=== PATIENT | male | born 1960 | race Caucasian/White ===

== ENCOUNTER 2024-02-17 19:58 | Inpatient (IN) | payer MEDICARE ==
[~2024-02-17] VITALS: Ht 188 cm; Wt 90.7 kg
[2024-02-17 20:27] LABS: BASOPHILS % (AUTO) 0.5 % (0.0-2.0); EOSINOPHILS # (AUTO) 0.1 K/uL (0.0-0.7); EOSINOPHILS % (AUTO) 2.2 % (0.0-6.0); HEMATOCRIT 35 % (39-51); HEMOGLOBIN 11.9 g/dL (13.5-17.5); LYMPHOCYTES # (AUTO) 1.6 K/uL (0.8-4.8); LYMPHOCYTES % (AUTO) 30.5 % (20.0-44.0); MEAN CORPUSCULAR HEMOGLOBIN 30 PG (26.0-33.0); MEAN CORPUSCULAR HGB CONC 34 g/dl (31.0-36.0); MEAN CORPUSCULAR VOLUME 88 fL (80-96); MONOCYTES # (AUTO) 0.7 K/uL (0.1-1.30); MONOCYTES % (AUTO) 14.1 % (2.0-12.0); NEUTROPHILS # (AUTO) 2.7 K/uL (1.8-8.9); NEUTROPHILS % (AUTO) 52.7 % (43.0-81.0); PLATELET COUNT (AUTO) 213 K/uL (150-450); RED BLOOD CELL COUNT(AUTO) 4.04 MIL/uL (4.5-6.0); RED CELL DISTRIBUTION WIDTH 15.7 % (11.5-15.0); WHITE BLOOD COUNT (AUTO) 5.2 K/uL (4.3-11.0)
[2024-02-17 20:45] LABS: CALCIUM, SERUM 9.2 mg/dL (8.5-10.1); CARBON DIOXIDE 30 mmol/L (21-32); CHLORIDE 102 mmol/L (98-107); CREATININE 0.8 mg/dL (0.6-1.3); GLUCOSE 85 mg/dL (74-106); POTASSIUM 3.8 mmol/L (3.5-5.1); SODIUM SERUM 137 mmol/L (136-145); UREA NITROGEN, BLOOD 11 mg/dL (7-18)
[2024-02-17 20:47] LABS: ALANINE AMINOTRANSFERASE 9 U/L (12-78); ALBUMIN 3.3 g/dL (3.4-5.0); ALCOHOL, BLOOD < 3 mg/dL (0-10); ALKALINE PHOSPHATASE 78 U/L (46-116); ASPARTATE AMINOTRANSFERASE 9 U/L (15-37); BILIRUBIN,DIRECT 0.1 mg/dL (0.0-0.2); BILIRUBIN,TOTAL 0.5 mg/dL (0.2-1.0); TOTAL PROTEIN, SERUM 7.2 g/dL (6.4-8.2)
[2024-02-17 20:49] LABS: ACETAMINOPHEN <10 ug/ml (10-30); SALICYLATE 0.3 mg/dL (2.8-20.0)
[2024-02-17 21:05] LABS: APPEARANCE,URINE CLEAR (CLEAR); BILIRUBIN,URINE NEGATIVE (NEGATIVE); BLOOD, URINE NEGATIVE Ery/uL (NEGATIVE); COLOR,URINE YELLOW (YELLOW); KETONES,URINE NEGATIVE (NEGATIVE); LEUKOCYTE ESTERASE ,URINE NEGATIVE (NEGATIVE); NITRITE, URINE NEGATIVE (NEGATIVE); PROTEIN,URINE NEGATIVE (NEGATIVE); UGLUCOSE NEGATIVE (NEGATIVE); UROBILINOGEN,URINE 0.2 EU/dL (0.2)
[2024-02-17] MEDS ORDERED: OLANZAPINE 10 MG VIAL IM ONE (21:05)
[2024-02-17] MEDS ORDERED: LORAZEPAM INJ 2 MG/ML VIAL ONE (21:06)
[2024-02-17] MEDS: LORAZEPAM INJ 2 MG/ML VIAL IM ONE (21:10)
[2024-02-17] MEDS: OLANZAPINE 10 MG VIAL IM ONE (21:10)
[2024-02-17 21:16] LABS: AMPHETAMINE, URINE NEGATIVE (NEGATIVE); BARBITURATE, URINE NEGATIVE (NEGATIVE); BENZODIAZEPINE, URINE NEGATIVE (NEGATIVE); CANNABINOID, URINE NEGATIVE (NEGATIVE); COCCAINE, URINE NEGATIVE (NEGATIVE); OPIATE, URINE NEGATIVE (NEGATIVE); PHENCYCLIDINE SCREEN,URINE NEGATIVE (NEGATIVE)
[2024-02-18] MEDS ORDERED: OMEP40CA21 PO (03:50)
[2024-02-18] MEDS ORDERED: LORA2VIA11 IM (03:50)
[2024-02-18] MEDS ORDERED: FERR325T24 PO (03:50)
[2024-02-18] MEDS ORDERED: QUET50TA PO (03:50)
[2024-02-18] MEDS ORDERED: DOCU100T2 PO (03:50)
[2024-02-18] MEDS ORDERED: TAMS-12 PO (03:50)
[2024-02-18] MEDS ORDERED: MAGN24002 PO (03:50)
[2024-02-18] MEDS ORDERED: THIA100V2 PO (03:50)
[2024-02-18] MEDS ORDERED: LIOT5TAB11 PO (03:50)
[2024-02-18] MEDS ORDERED: LEVO150T8 PO (03:50)
[2024-02-18] MEDS ORDERED: ASCO500T10 PO (03:50)
[2024-02-18] MEDS ORDERED: FOLI0.4T6 PO (03:50)
[2024-02-18] MEDS ORDERED: NA P133E RC (03:50)
[2024-02-18 04:00] VITALS: BP 118/87; TEMP 98.3; O2SAT 98
[2024-02-18] MEDS ORDERED: TEMAZEPAM 7.5 MG CAPSULE PO PRN (04:30)
[2024-02-18] MEDS ORDERED: ACETAMINOPHEN 325 MG TABLET PO PRN (04:30)
[2024-02-18] MEDS ORDERED: MAGNESIUM HYDROXIDE 30 ML UDC PO PRN (04:30)
[2024-02-18] MEDS ORDERED: MAG HYDROX/AL HYDROX/SIMETH 30 ML UDC PO PRN (04:30)
[2024-02-18] MEDS: BLOOD SUGAR DIAGNOSTIC 1 EACH STRIP IN ONE (04:43)
[2024-02-18 08:00] VITALS: BP 103/65; TEMP 97.9; O2SAT 99
[2024-02-18] MEDS ORDERED: ACET-868 PO (08:59)
[2024-02-18] MEDS ORDERED: BISA10SU11 RC (08:59)
[2024-02-18] MEDS ORDERED: LORA-259 PO (08:59)
[2024-02-18] MEDS: clonazePAM 0.5 MG TABLET PO PRN (11:10)
[2024-02-18] MEDS: HALOPERIDOL LACTATE INJ 5 MG/ML VIAL IM ONE (11:30)
[2024-02-18] MEDS: diphenhydrAMINE HCL 50 MG/ML VIAL IV ONE (11:31)
[2024-02-18 16:00] VITALS: BP 114/82; TEMP 98; O2SAT 98
[2024-02-18] MEDS: DOCUSATE SODIUM 100 MG CAPSULE PO SCH (16:45)
[2024-02-18 20:55] VITALS: BP 103/71; TEMP 98.2; O2SAT 97
[2024-02-18] MEDS: TAMSULOSIN 0.4 MG CAP.SR.24H PO SCH (21:26)
[2024-02-18] MEDS: OLANZAPINE 10 MG TABLET PO SCH (21:26)
[2024-02-19] MEDS: LEVOTHYROXINE SODIUM 75 MCG TABLET PO SCH (07:50)
[2024-02-19 08:00] VITALS: BP 100/63; TEMP 97.8; O2SAT 97
[2024-02-19] MEDS: LIOTHYRONINE SODIUM (5 MCG/TA 5 MCG TABLET PO SCH (08:00)
[2024-02-19] MEDS: ASCORBIC ACID 500 MG TABLET PO SCH (09:00)
[2024-02-19] MEDS: OLANZAPINE 2.5 MG TABLET PO SCH (09:01)
[2024-02-19] MEDS: PANTOPRAZOLE 40 MG TABLET.DR PO SCH (09:01)
[2024-02-19] MEDS: FERROUS SULFATE (325 MG) 325 MG/TAB TABLET PO SCH (09:01)
[2024-02-19] MEDS: FOLIC ACID 1 MG TABLET PO SCH (09:01)
[2024-02-19 12:22] LABS: CALCIUM, SERUM 9.3 mg/dL (8.5-10.1); CREATININE 0.6 mg/dL (0.6-1.3); POTASSIUM 3.6 mmol/L (3.5-5.1)
[2024-02-19 13:06] LABS: BASOPHILS % (AUTO) 0.5 % (0.0-2.0); EOSINOPHILS # (AUTO) 0.1 K/uL (0.0-0.7); EOSINOPHILS % (AUTO) 2.1 % (0.0-6.0); HEMATOCRIT 38 % (39-51); HEMOGLOBIN 12.7 g/dL (13.5-17.5); LYMPHOCYTES # (AUTO) 1.5 K/uL (0.8-4.8); LYMPHOCYTES % (AUTO) 30.3 % (20.0-44.0); MEAN CORPUSCULAR HEMOGLOBIN 30 PG (26.0-33.0); MEAN CORPUSCULAR HGB CONC 34 g/dl (31.0-36.0); MEAN CORPUSCULAR VOLUME 88 fL (80-96); MONOCYTES # (AUTO) 0.6 K/uL (0.1-1.30); NEUTROPHILS # (AUTO) 2.8 K/uL (1.8-8.9); NEUTROPHILS % (AUTO) 55.1 % (43.0-81.0); PLATELET COUNT (AUTO) 227 K/uL (150-450); RED CELL DISTRIBUTION WIDTH 15.8 % (11.5-15.0); WHITE BLOOD COUNT (AUTO) 5.1 K/uL (4.3-11.0)
[2024-02-19 16:00] VITALS: BP_SYST 115; BP_SYST 125; BP_DIAS 72; BP_DIAS 88; TEMP 98.8; O2SAT 100
[2024-02-19] MEDS: clonazePAM 0.5 MG TABLET PO PRN (18:03)
[2024-02-19 20:33] VITALS: BP 98/59; TEMP 97.8; O2SAT 98
[2024-02-20 08:00] VITALS: BP 105/68; TEMP 98.1; O2SAT 97
[2024-02-20 16:00] VITALS: BP 118/55; TEMP 98.6; O2SAT 96
[2024-02-20 20:00] VITALS: BP 102/65; TEMP 98.7; O2SAT 96
[2024-02-21 08:00] VITALS: BP 109/89; TEMP 97.8; O2SAT 98
[2024-02-21 16:00] VITALS: BP 121/86; TEMP 97.9; O2SAT 98
[2024-02-21 20:00] VITALS: BP 95/63; TEMP 98.3; O2SAT 97
[2024-02-22 08:00] VITALS: BP 106/66; TEMP 97.8; O2SAT 99
[2024-02-22 16:00] VITALS: BP 107/81; TEMP 97.3; O2SAT 98
[2024-02-22 20:00] VITALS: BP 95/60; TEMP 97.6; O2SAT 97
[2024-02-22] MEDS: TEMAZEPAM 7.5 MG CAPSULE PO PRN (22:37)
[2024-02-23 08:00] VITALS: BP 94/68; TEMP 97.8; O2SAT 98
[2024-02-23 16:00] VITALS: BP 92/68; TEMP 97.8; O2SAT 96
[2024-02-23 20:00] VITALS: BP 102/71; TEMP 98; O2SAT 98
[2024-02-24 08:00] VITALS: BP 101/73; TEMP 97.8; O2SAT 96
[2024-02-24 16:00] VITALS: BP 120/68; TEMP 97.8; O2SAT 98
[2024-02-24 20:27] VITALS: BP 102/58; TEMP 97.9; O2SAT 100
[2024-02-25 08:00] VITALS: BP 100/77; TEMP 97.7; O2SAT 97
[2024-02-25 16:00] VITALS: BP 119/76; TEMP 98.4; O2SAT 98
[2024-02-25 20:36] VITALS: BP 115/70; TEMP 98.2; O2SAT 98
[2024-02-26 08:00] VITALS: BP 100/76; TEMP 98.1; O2SAT 98
[2024-02-26 16:00] VITALS: BP 115/86; TEMP 98.7; O2SAT 98
[2024-02-26 20:16] VITALS: BP 118/76; TEMP 98.4; O2SAT 97
[2024-02-27 08:00] VITALS: BP 106/78; TEMP 97.9; O2SAT 96
[2024-02-27 16:00] VITALS: BP 112/78; TEMP 97.9; O2SAT 97
[2024-02-27 21:04] VITALS: BP 100/69; TEMP 98.7; O2SAT 98
[2024-02-28 08:00] VITALS: BP 96/75; TEMP 97.9; O2SAT 97
[2024-02-28 16:00] VITALS: BP 100/79; TEMP 97.8; O2SAT 98
[2024-02-28 20:00] VITALS: BP 98/66; TEMP 98.2; O2SAT 98
[2024-02-29 08:00] VITALS: BP 112/76; TEMP 97.9; O2SAT 98
== END 2024-02-29 13:20 | DRG 885 ==
LOC: ER 20:00 → GPS 02-18 02:15
PROVIDERS: ADMIT Nurse Practitioner Psychiatric/Mental Health
DX: F20.9 Schizophrenia, unspecified (principal); F29 Unspecified psychosis not due to a substance or known physiological condition; N40.0 Benign prostatic hyperplasia without lower urinary tract symptoms; E03.9 Hypothyroidism, unspecified; Z20.822 Contact with and (suspected) exposure to COVID-19; D64.9 Anemia, unspecified; Z86.73 Personal history of transient ischemic attack (TIA), and cerebral infarction without residual deficits; Z73.6 Limitation of activities due to disability; Z78.1 Physical restraint status; F41.9 Anxiety disorder, unspecified; G31.84 Mild cognitive impairment of uncertain or unknown etiology; Z86.61 Personal history of infections of the central nervous system
CPT/HCPCS: 36415; 80048-TC; 80061-TC; 80076-TC; 82962-TC; 85025-TC; 97112-TC; 97116-TC; 97530-TC; 98960; G0480; J1200; J1630; J2060; J3490